=== PATIENT | male | born 2000 | race Caucasian/White ===

== ENCOUNTER 2021-07-03 14:06 | Emergency (ER) | payer OTHER ==
--- NOTE | 2021-07-03 14:31 | EDM.PDOC ---
ED HPI GENERAL MEDICAL PROBLEM - General Chief Complaint: Lower Extremity Injury/Pain Stated Complaint: WORK-RELATED ACCIDENT Time Seen by Provider: 07/03/21 14:10 Source of Information: Reports: Patient History Limitations: Reports: No Limitations - History of Present Illness INITIAL COMMENTS - FREE TEXT/NARRATIVE: Patient presented to the ED because of right hip pain. He was opening a steel cap which is pressurized and the cap hit him on the right hip. Right Hip Pain Score (Numeric/FACES): 5 - Related Data Allergies Allergy/AdvReac Type Severity Reaction Status Date / Time No Known Allergies Allergy Verified 07/03/21 14:22 Home Meds: Home Meds NK [No Known Home Meds] 07/03/21 [History] Review of Systems - Review of Systems Review Of Systems: See Below Constitutional: Reports: No Symptoms Eyes: Reports: No Symptoms Ears: Reports: No Symptoms Nose: Reports: No Symptoms Mouth/Throat: Reports: No Symptoms Respiratory: Reports: No Symptoms Cardiovascular: Reports: No Symptoms Genitourinary: Reports: No Symptoms Musculoskeletal: Reports: No Symptoms Skin: Reports: Bruising Neurological: Reports: No Symptoms Psychiatric: Reports: No Symptoms ED EXAM, GENERAL - Physical Exam Exam: See Below Exam Limited By: No Limitations General Appearance: Alert, No Apparent Distress Eye Exam: Bilateral Eye: PERRL Ears: Normal External Exam, Normal Canal Nose: Normal Inspection, Normal Mucosa, No Blood Throat/Mouth: Normal Inspection, Normal Lips, Normal Teeth Head: Atraumatic, Normocephalic Neck: Normal Inspection, Supple, Non-Tender, Full Range of Motion Respiratory/Chest: No Respiratory Distress, Lungs Clear, Normal Breath Sounds, No Accessory Muscle Use, Chest Non-Tender Cardiovascular: Normal Peripheral Pulses, Regular Rate, Rhythm, No Edema, No Gallop, No JVD, No Murmur, No Rub GI/Abdominal: Normal Bowel Sounds, Soft, Non-Tender, No Organomegaly, No Distention, No Abnormal Bruit Back Exam: Normal Inspection, Full Range of Motion Extremities: Normal Inspection, Normal Range of Motion, Non-Tender, No Pedal Edema, Normal Capillary Refill Neurological: Alert, Oriented, CN II-XII Intact, Normal Cognition Skin Exam: Other (bruising on the right hip) Course - Vital Signs Text/Narrative:: Ibuprofen 800 mg PO x1 Tylenol 1000 mg PO x1 Last Recorded V/S: Last Vital Signs Temp 36.8 C 07/03/21 14:07 Pulse 106 H 07/03/21 14:07 Resp 20 07/03/21 14:07 BP 161/101 H 07/03/21 14:07 Pulse Ox 97 07/03/21 14:07 - Orders/Labs/Meds Meds: Medications Discontinued Medications Generic Name Dose Route Start Last Admin Trade Name Delfino PRN Reason Stop Dose Admin Acetaminophen 1,000 mg 07/03/21 14:49 07/03/21 14:54 Acetaminophen 500 Mg Tab PO 07/03/21 14:50 1,000 mg NOW STA Administration Ibuprofen 800 mg 07/03/21 14:49 07/03/21 14:54 Ibuprofen 800 Mg Tab PO 07/03/21 14:50 800 mg NOW STA Administration Departure - Departure Time of Disposition: 14:45 Disposition: Home, Self-Care 01 Condition: Good Clinical Impression: Contusion, Contusion of hip - Discharge Information Instructions: Contusion, [id number] Referrals: PCP,None [Primary Care Provider] - Forms: ED Department Discharge Additional Instructions: Please read discharge instructions on contusion Apply ice or heat whichever makes it feel better Take ibuprofen 800 mg with tylenol 1000 mg every 8 hours as needed for pain Follow up as needed Sepsis Event Note (ED) - Evaluation Sepsis Screening Result: No Definite Risk
[2021-07-03] MEDS ORDERED: Ibuprofen 800 MG Tab PO STA (14:49)
[2021-07-03] MEDS ORDERED: Acetaminophen 500 MG Tab PO STA (14:49)
--- NOTE | 2021-07-03 16:37 | CR ---
RIGHT HIP WITH PELVIS INDICATION: Right hip pain, post accident, hit in hip with a pipe cap. FINDINGS: AP view of the pelvis with lateral and patellar sunrise of the right hip revealed no evidence of an acute fracture, dislocation or other significant bone or joint abnormality. Sclerotic densities overlying the intertrochanteric area of the left femur likely are due to benign bone islands. IMPRESSION: Normal pelvis and right hip. If symptoms persist - if occult fracture site is suspected clinically, reexamination in 10-14 days may be warranted. CHRISTIANAD
== END 2021-07-03 15:00 | disposition home or self-care (01) ==
LOC: FB.ED 14:06
DX: S70.01XA Contusion of right hip, initial encounter (principal); W20.8XXA Other cause of strike by thrown, projected or falling object, initial encounter
CPT/HCPCS: 73502; 99000; 99283; A9270